=== PATIENT | female | born 2000 | race Caucasian/White ===

== ENCOUNTER 2021-02-24 14:24 | Emergency (ER) | payer MEDICAID, SELFPAY ==
[2021-02-24 14:28] VITALS: BP 119/52; PULSE 70; RESP 16; TEMP 36.2; O2SAT 99
--- NOTE | 2021-02-24 14:45 | ED.GENADUL_ITS ---
Discharge Plan Disposition Patient Disposition: HOME Condition: Stable Discharge Details Clinical Impression: Tick bite Primary Care Provider: Raad Bhakta ED Provider: Daniel Sue Home Meds and New Rx's Prescriptions: Continued topiramate 25 mg tablet 25 mg PO DAILY RF: 0 loratadine [Claritin] 10 mg Tablet 10 mg PO PRNRF: 0 Nurtec ODT 75 mg tablet,disintegrating 75 mg PO PRNRF: 0 Discharge Instructions Instructions: Tick Bite (ED) Additional Instructions: A single dose of doxycycline was given to prevent potential transmission of Lyme disease. Keep the area clean and dry, you may apply an antibiotic ointment locally. Watch for new or worsening symptoms and return to the ER for any concerns. Medical Decision Making 20-year-old female presents for a right leg tick bite, tick has been there since at least Saturday night, partially engorged. They burned the tick , I am unable to accurately identify what type of tick it is. Will provide a single 200 mg dose of doxycycline. Patient and family have no additional questions or concerns. I was able to scrape away the potential foreign body, Band-Aid placed. Standard discharge and return precautions given Medical Records Medical records reviewed: Yes I reviewed the patient's medical records. HPI General Mode of arrival: ambulatory . Date/Time Provider Initiated Documentation: 02/24/21 14:33 . Limitations to Documentation: no limitations . Information obtained by: patient . HPI Narrative: This is a 20-year-old female, denies significant past medical history, presenting for a tick bite on her right lower extremity. Patient states that the tick has been there since sometime after Saturday. She noticed the tick this morning around 11:30 AM, it was partially engorged, and she was able to remove the tick without difficulty. They then burned the tick but did not bring it in a plastic bag. Denies fever, joint pain, rash. She has no additional questions or concerns at this time. Related Data Home Medications Medication Instructions Recorded Confirmed Nurtec ODT 75 mg PO PRN 02/24/21 loratadine [Claritin] 10 mg PO PRN 02/24/21 topiramate 25 mg PO DAILY 02/24/21 02/24/21 Allergies Allergy/AdvReac Type Severity Reaction Status Date / Time latex Allergy Mild Skin Rash Unverified 02/24/21 14:33 General Stated Complaint: RashLesion KEITH: 4 Review of Systems Constitutional Constitutional: Denies fever(s) Musculoskeletal Musculoskeletal: Denies arthralgias Integumentary/Breasts Skin/Breast: Denies erythema PFSH Social History Smoking/Tobacco Use Status: Never Smoking risk assessment performed?: Yes Alcohol Intake: never Drug use: Never Substance use type: does not use Do you feel safe in your relationship?: Yes Exam Const General: cooperative, healthy appearing, comfortable and no acute distress Orientation: alert and awake HENMT Head: normal to inspection, normocephalic and atraumatic Eyes Conjunctivae: conjunctivae normal Neck Neck: normal visual inspection, trachea midline and supple Resp Effort & Inspection: normal respiratory effort and able to speak in complete sentences Skin General skin exam: no rashes or lesions noted Neuro General: patient alert, patient awake, moves all extremities and no focal motor deficits Cognition: normal cognition Speech: speech normal Gait: normal gait Motor: muscle tone normal throughout Sensory Exam: no sensory deficits noted Extrem General: full ROM and capillary refill normal Knee images: 1. 0.5 cm macular erythema, centrally there is an area of hyperpigmentation, difficult to tell whether this is scalpel potential foreign body. There is no tenderness, warmth, drainage. No signs of secondary infection. Psych Appearance: grossly normal Mental Status: mental status grossly normal Course Vital Signs Vital signs: Vital Signs Temperature 36.2 C L 02/24/21 14:28 Pulse 70 02/24/21 14:28 Respiratory Rate 16 02/24/21 14:28 Blood Pressure 119/52 L 02/24/21 14:28 Pulse Oximetry 99 02/24/21 14:28 Temperature 36.2 C L 02/24/21 14:28 Temperature Source Skin 02/24/21 14:28 Pulse 70 02/24/21 14:28 Respiratory Rate 16 02/24/21 14:28 Respiratory Effort Non-Labored 02/24/21 14:28 Blood Pressure 119/52 L 02/24/21 14:28 Blood Pressure Position Sitting 02/24/21 14:28 Pulse Oximetry 99 02/24/21 14:28 Oxygen Delivery Method Room Air 02/24/21 14:28 Oxygen Flow Rate 0 02/24/21 14:28 Pain Level 2 02/24/21 14:28 Procedures Other Description: Using an 11 blade scalpel, I was able to gently scrape across skin and remove the area of mild hyperpigmentation. I was able to see to the base of the lesion, no foreign body remained
[2021-02-24] MEDS: Doxycycline Hyclate 100 MG CAP 200 MG PO (14:59)
== END 2021-02-24 15:03 | disposition home or self-care (01) ==
PROVIDERS: Emergency Provider Physician Assistant; PCP Family Medicine
DX: S80.261A Insect bite (nonvenomous), right knee, initial encounter (principal); W57.XXXA Bitten or stung by nonvenomous insect and other nonvenomous arthropods, initial encounter
CPT/HCPCS: 99283

== ENCOUNTER 2021-03-15 09:10 | Outpatient (CLI) | payer MEDICAID, SELFPAY ==
[2021-03-16 10:21] LABS: Lyme Ab w Rflx to Lyme Confirm Negative (Negative)
== END 2021-03-15 09:11 | disposition home or self-care (01) ==
PROVIDERS: PCP Family Medicine; Visit Provider Family Medicine
DX: S80.869S Insect bite (nonvenomous), unspecified lower leg, sequela (principal); W57.XXXS Bitten or stung by nonvenomous insect and other nonvenomous arthropods, sequela
CPT/HCPCS: 36415; 86618

== ENCOUNTER 2021-04-25 11:34 | Emergency (ER) | payer MEDICAID, SELFPAY ==
[2021-04-25 11:45] VITALS: BP 134/87; PULSE 64; RESP 14; TEMP 36.6; O2SAT 97
--- NOTE | 2021-04-25 12:00 | DI.RAD_ITS ---
Exam(s) XR LUMBAR SPINE COMPLETE EXAM: XR LUMBAR SPINE COMPLETE CLINICAL HISTORY: R back pain. TECHNIQUE: 2D digital imaging was performed. COMPARISON: No exams were available for comparison FINDINGS: BONES: No fracture or destructive lesion. Vertebral bodies are unremarkable. No facet hypertrophy luz ntified. DISKS: Intervertebral disc spaces are maintained. ALIGNMENT: Lumbar spinal alignment is within normal limits. SOFT TISSUE: Normal. IMPRESSION: Unremarkable radiographs of the lumbar spine. DATA REPOSITORY: RADIATION DOSE DELIVERED:
--- NOTE | 2021-04-25 12:00 | DI.RAD_ITS ---
Exam(s) XR THORACIC SPINE COMPLETE EXAM: XR THORACIC SPINE COMPLETE CLINICAL HISTORY: pain, most R thoracic. TECHNIQUE: 2D digital imaging was performed. COMPARISON: No exams were available for comparison FINDINGS: BONES: There is no fracture or destructive lesion. The vertebral bodies and posterior elements are un remarkable. DISKS:Alignment is within normal limits. Interverebral disc spaces are maintained. SOFT TISSUE: Visualized lungs are clear. IMPRESSION: Unremarkable radiographs of the thoracic spine. DATA REPOSITORY: RADIATION DOSE DELIVERED:
--- NOTE | 2021-04-25 12:00 | DI.RAD_ITS ---
Exam(s) XR CHEST 2V PA LATERAL EXAM: XR CHEST 2V PA LATERAL CLINICAL HISTORY: pain R thoracic posterior TECHNIQUE: 2D digital imaging was performed. COMPARISON: No exams were available for comparison FINDINGS: MEDIASTINUM: Normal. HEART: Normal. PULMONARY VASCULATURE: Normal. LUNGS: Clear. PLEURAL SPACE: No pleural effusion or pneumothorax. BONE:Unremarkable for age. IMPRESSION: No acute abnormality. DATA REPOSITORY: RADIATION DOSE DELIVERED:
[2021-04-25] MEDS: diazePAM 5 MG TAB PO (12:15)
--- NOTE | 2021-04-25 12:16 | W.ED.GENAD ---
Discharge Plan Disposition Patient Disposition: HOME Condition: Stable Discharge Details Clinical Impression: Rhomboid myalgia Primary Care Provider: Raad Bhakta ED Provider: Raad Richards Home Meds and New Rx's Prescriptions: New methocarbamol 500 mg tablet 500 mg PO Q6H PRN (Reason: Back pain or spasm) 7 Days Qty: 20 RF: 0 Continued loratadine [Claritin] 10 mg Tablet 10 mg PO PRNRF: 0 Discharge Instructions Instructions: Musculoskeletal Pain (ED) Additional Instructions: Small, frequent sips of fluids with you maintain good hydration. Consider adding an [id number] electrolyte supplements such as Nuun tablets. May use methocarbamol as prescribed, as needed for pain or spasm. May apply gentle foam roll pressure to area to reduce discomfort. Continue Tylenol and/or ibuprofen as needed for pain. Return if develop a rash, increasing pain, or any other acute concerns. No alcohol or driving the next 6 hours time as you were given Valium. Stand Alone Forms: Work Release Medical Decision Making 20-year-old female presents with onset of back pain over the weekend that she describes as constant, throbbing, primarily with located right thoracic. Seem to have occasional worsening but did respond to both cold, heat, NSAIDs. No fall or injury. Patient has reproducible discomfort in the right rhomboid region on exam. She is referred for screening x-rays of the spine and chest, as well as screening urinalysis. Of x-ray unremarkable for acute process. Urinalysis unremarkable. Patient improving following oral Valium. Most consistent with muscular spasm. We will trial methocarbamol and conservative management at home. She is stable and appropriate for discharge at this time. HPI General Mode of arrival: ambulatory. Date/Time Provider Initiated Documentation: 04/25/21 11:44. Limitations to Documentation: no limitations. Information obtained by: patient. History of Present Illness 20 year old F presents to the emergency department with the chief complaint of Back pain, described as moderate, Quality is described as dull and constant, and is localized to the back. Patient reports radiation to back. Patient started experiencing this hour(s) and it has been constant. Rest improves symptom(s), Movement worsens symptoms . Patient notes denies fever/chills, nausea/vomiting and rash. Patient did receive the following treatments prior to arrival, NSAID, cold therapy and heat therapy Related Data Home Medications Medication Instructions Recorded Confirmed loratadine [Claritin] 10 mg PO PRN 02/24/21 methocarbamol 500 mg PO Q6H PRN 7 Days #20 tab 04/25/21 Previous Rx's Medication Instructions Recorded methocarbamol 500 mg PO Q6H PRN 7 Days #20 tab 04/25/21 Allergies Allergy/AdvReac Type Severity Reaction Status Date / Time latex Allergy Mild Skin Rash Unverified 04/25/21 11:50 General Stated Complaint: Nk/Back Pain KEITH: 3 Review of Systems Narrative: No fall or injury. No fever, no change to urination. Denies rash. 6 systems reviewed and otherwise negative. [facility] Social History Smoking/Tobacco Use Status: Never Smoking risk assessment performed?: Yes Alcohol Intake: never Drug use: Never Substance use type: does not use Do you feel safe at home: Yes Do you feel safe in your relationship?: Yes Exam Narrative Exam Narrative: GEN: awake, alert, oriented 3. Pleasant, well groomed, interactive. HEAD: Normocephalic, atraumatic ENT: Mucous membranes moist, oropharynx unremarkable, External ear exam unremarkable EYES: PERRL, EOMI NECK: Full ROM, no TONY, no menigismus CHEST/RESP: Nontender, clear to auscultation bilateral, no wheeze/rhonchi/rales CARDIOVASCULAR: RRR, no murmur, rub michelle. 2+ Rad pulse bilateral Back: Right medial scapular/rhomboid tenderness and spasm present. Minimal right lumbar spasm present. No midline step-off or deformity. ABDOMEN: Soft, nontender, no mass. +Bowel sounds EXT: Full ROM, no edema, no rash Neuro: Grossly normal neurologic exam, conversant, interactive. Psych: Speech fluent, thoughts congruent, affect normal Course Vital Signs Vital signs: Vital Signs Temperature 36.6 C 04/25/21 11:45 Pulse 64 04/25/21 11:45 Respiratory Rate 14 04/25/21 11:45 Blood Pressure 134/87 04/25/21 11:45 Pulse Oximetry 97 04/25/21 11:45 Temperature 36.6 C 04/25/21 11:45 Temperature Source Skin 04/25/21 11:45 Pulse 64 04/25/21 11:45 Respiratory Rate 14 04/25/21 11:45 Respiratory Effort Non-Labored 04/25/21 11:52 Blood Pressure 134/87 04/25/21 11:45 Blood Pressure Position Supine 04/25/21 11:45 Pulse Oximetry 97 04/25/21 11:45 Oxygen Delivery Method Room Air 04/25/21 11:45 Oxygen Flow Rate 0 04/25/21 11:45 Pain Level 8 04/25/21 11:45
[2021-04-25 12:31] LABS: Bilirubin Negative (Negative); Blood Negative (Negative); Clarity Clear (Clear); Glucose Negative (Negative); Ketones Negative (Negative); Leukocyte Esterase Negative (Negative); Nitrite Negative (Negative); Specific Gravity 1.015 (1.005-1.025); Urobilinogen 0.2 EU/dL (Up TO 0.2)
== END 2021-04-25 13:10 | disposition home or self-care (01) ==
PROVIDERS: Emergency Provider Emergency Medicine; PCP Family Medicine
DX: M79.18 Myalgia, other site (principal); M54.6 Pain in thoracic spine
CPT/HCPCS: 81025; 99284; 71046; 72072; 72110; 81003

== ENCOUNTER 2021-08-24 04:21 | Outpatient (CLI) | payer MEDICAID, SELFPAY ==
[2021-08-24 22:24] LABS: FSH 7.6 mIU/mL (See Note)
[2021-08-24 22:27] LABS: Prolactin 8.1 ng/mL (See Table)
[2021-08-25 09:33] LABS: DHEA Sulfate 375 ug/dL (134-407)
[2021-08-28 00:19] LABS: Testosterone, Total 24 ng/dL (8-60)
== END 2021-08-24 04:22 | disposition home or self-care (01) ==
LOC: LBO 04:21
PROVIDERS: PCP Family Medicine; Visit Provider Nurse Practitioner Women's Health
DX: N92.6 Irregular menstruation, unspecified (principal); R63.4 Abnormal weight loss
CPT/HCPCS: 36415; 82627; 84403; 83001; 84146; 84443

== ENCOUNTER 2022-02-02 21:03 | Emergency (ER) | payer MEDICAID, SELFPAY ==
[2022-02-02 21:14] VITALS: BP 134/81; PULSE 79; RESP 19; TEMP 37.2; O2SAT 95
--- NOTE | 2022-02-02 21:15 | DI.RAD_ITS ---
Exam(s) XR FOOT LT COMPLETE EXAM: XR FOOT LT COMPLETE CLINICAL HISTORY: stepped on a nail, r/o foreign body. TECHNIQUE: 2D digital imaging was performed. Three views. COMPARISON: CR XR THORACIC SPINE COMPLETE from 04/25/2021 FINDINGS: BONES: No acute fracture is present. No bony destructive lesion is seen. JOINTS: No dislocation present. SOFT TISSUE: Normal. No foreign body or abnormal gas collection. IMPRESSION: Unremarkable radiographs of the left foot. DATA REPOSITORY: RADIATION DOSE DELIVERED:
--- NOTE | 2022-02-02 21:49 | ED.GENADUL_ITS ---
Discharge Plan Disposition Patient Disposition: HOME Condition: Stable Discharge Details Clinical Impression: Puncture wound of foot, left Primary Care Provider: Chance Hernandez ED Provider: Lily Funk Home Meds and New Rx's Prescriptions: New ciprofloxacin HCl 500 mg tablet 500 mg PO BID 7 Days Qty: 14 0RF Continued loratadine [Claritin] 10 mg Tablet 10 mg PO PRN Discharge Instructions Instructions: Puncture Wound (ED) Additional Instructions: Keep wound clean and dry. Cover wound with bandage if risk of contamination. Otherwise you can keep the wound open to air if resting at home to allow to dry and heal. A prescription for antibiotics was sent electronically to your pharmacy to take as directed until finished. Follow-up with your primary care doctor in 1 week. Return to the emergency department with any worsening or new concerning symptoms such as fever such as fever, increased pain, redness or swelling. Discharge Data Discharge Date/Time-TO BE ENTERED AT DEPARTURE: 02/02/22 22:53 Discharge Physician: Lily Funk Medical Decision Making 21-year-old female presents with a complaint of puncture wound through her shoe to her left foot after stepped on a benita nail in a board. Tetanus up-to-date. There is a 2 mm puncture wound noted to the plantar surface of her left foot overlying the distal MTP joint. Bleeding is controlled. There is some mild surrounding swelling but no evidence of cellulitis. Patient referred for x-ray which was unremarkable. Urine negative. Her foot was irrigated and soaked in saline and Betadine. For coverage for puncture wound, will treat with Cipro. She was given 1 dose here and a prescription sent electronically to her pharmacy. Advised to follow up with the primary care doctor for re-evaluation. Usual and customary return precautions given prior to discharge. Medical Records Medical records reviewed: Yes I reviewed the patient's medical records. Imaging Data Radiologic Study: Radiologist's impression: XR Left Foot Exam date and time: 02/02/2022 9:40 PM Age: 21 years old Clinical indication: Foot; Left; Patient HX: Stepped on nail, pain and swelling, R/O fb TECHNIQUE: Imaging protocol: Radiologic exam of the Left foot. Views: 3 or more views. COMPARISON: No relevant prior studies available. FINDINGS: Bones/joints: No fractures. Normal alignment is maintained in the midfoot, hindfoot, and forefoot. Joint spaces are well-maintained. No blastic or lytic lesions. No gross ankle joint effusion. No hindfoot coalition. Soft tissues: No periostitis or osteolysis. No gross soft tissue abnormalities. No radiopaque foreign bodies. IMPRESSION: No acute findings. No radiopaque foreign bodies are identified. HPI General Mode of arrival: ambulatory . Date/Time Provider Initiated Documentation: 02/02/22 21:23 . Limitations to Documentation: no limitations . Information obtained by: patient . HPI Narrative: Patient is a 21-year-old female who presents to the ED with a complaint of puncture wound to her left foot while wearing rubber croc shoes this afternoon. Patient states she stepped on a plank while wearing the shoes and a large nail became stuck to the shoe into the plantar surface of her foot. She states she was able to remove the nail and it was intact. She states her tetanus is up-to-date 2017. She states she immediately soaked and irrigated her foot. She is presenting now with pain and swelling to the area. Related Data Home Medications Medication Instructions Recorded Confirmed loratadine 10 mg tablet (Claritin) 10 mg PO PRN 02/24/21 11/21/21 ciprofloxacin HCl 500 mg tablet 500 mg PO BID 7 days #14 tabs 02/02/22 Previous Rx's Medication Instructions Recorded ciprofloxacin HCl 500 mg tablet 500 mg PO BID 7 days #14 tabs 02/02/22 Allergies Allergy/AdvReac Type Severity Reaction Status Date / Time latex Allergy Mild Skin Rash Unverified 08/21/21 13:56 General Stated Complaint: Trauma KEITH: 4 Review of Systems All systems reviewed & are unremarkable except as noted in HPI and below Constitutional Constitutional: Reports as per HPI, Denies chills and Denies fever(s) Eyes Eyes: Denies blurry vision ENT Ears, Nose, Mouth, and Throat: Denies dizziness, Denies sore throat and Denies throat swelling Cardiovascular Cardiovascular: Denies chest pain and Denies dyspnea Respiratory Respiratory: Denies cough and Denies dyspnea Gastrointestinal Gastrointestinal: Denies abdominal pain, Denies diarrhea and Denies vomiting Genitourinary Genitourinary: Denies hematuria and Denies dysuria Musculoskeletal Musculoskeletal: Denies back pain and Denies numbness Integumentary/Breasts Skin/Breast: Denies lesions and Denies rash Neurologic Neurologic: Denies dizziness, Denies localized weakness and Denies numbness Allergic/Immunologic Allergic/Immunologic: Denies throat swelling PFSH All Active Problems (Updated 02/02/22 @ 22:27 by Lily Funk DO) Puncture wound of foot, left (Acute) Anxiety (Chronic) Migraine headache with aura (Acute) PCOS (polycystic ovarian syndrome) (Acute) Medical History (Updated 02/02/22 @ 22:27 by Lily Funk DO) Anemia Surgical History (Updated 08/21/21 @ 14:47 by Neha Garcia NP) S/P MCL repair S/P ureteral reimplantation Social History Smoking/Tobacco Use Status: Never Smoking risk assessment performed?: Yes Alcohol Intake: never Drug use: Never Substance use type: does not use Do you feel safe at home: Yes Do you feel safe in your relationship?: Yes History History 0 Para Hx # Term Pregnancies Multiple births Hx # Pregnancies Ectopic pregnancies AB induced Hx Number of Living Children AB spontaneous Exam Const General: cooperative, healthy appearing and no acute distress Orientation: alert, awake and oriented x3 HENMT Head: normal to inspection Mouth: oral mucosae normal Eyes General: appearance normal, both eyes and all related structures Neck Neck: normal visual inspection Resp Effort & Inspection: normal respiratory effort and able to speak in complete sentences Cardio Rate: regular rate Skin General skin exam: no rashes or lesions noted Neuro General: patient alert, patient awake and patient oriented x3 Motor: muscle tone normal throughout Extrem Ankle/foot/toe images: 1. 2 mm puncture wound noted on the plantar surface of the left foot overlying the distal first MTP joint. There is a tiny hematoma noted but no active bleeding, drainage, erythema or abscess noted. Psych Appearance: grossly normal Affect: normal affect Course Vital Signs Vital signs: Vital Signs Temperature 99.0 F 02/02/22 21:14 Pulse 79 02/02/22 21:14 Respiratory Rate 19 02/02/22 21:14 Blood Pressure 134/81 02/02/22 21:14 Pulse Oximetry 95 02/02/22 21:14 Temperature 99.0 F 02/02/22 21:14 Temperature Source Temporal Artery Scan 02/02/22 21:14 Pulse 79 02/02/22 21:14 Respiratory Rate 19 02/02/22 21:14 Blood Pressure 134/81 06/17/22 21:14 Blood Pressure Position Sitting 02/02/22 21:14 Pulse Oximetry 95 02/02/22 21:14 Oxygen Delivery Method Room Air 02/02/22 21:14 Oxygen Flow Rate 0 02/02/22 21:14 Pain Level 3 02/02/22 21:14
--- NOTE | 2022-02-02 22:19 | DI.VRAD_ITS ---
PROCEDURE INFORMATION: Exam: XR Left Foot Exam date and time: 02/02/2022 9:40 PM Age: 21 years old Clinical indication: Foot; Left; Patient HX: Stepped on nail, pain and swelling, R/O fb TECHNIQUE: Imaging protocol: Radiologic exam of the Left foot. Views: 3 or more views. COMPARISON: No relevant prior studies available. FINDINGS: Bones/joints: No fractures. Normal alignment is maintained in the midfoot, hindfoot, and forefoot. Joint spaces are well-maintained. No blastic or lytic lesions. No gross ankle joint effusion. No hindfoot coalition. Soft tissues: No periostitis or osteolysis. No gross soft tissue abnormalities. No radiopaque foreign bodies. IMPRESSION: No acute findings. No radiopaque foreign bodies are identified. Dictated and Authenticated by: Chance Saha MD. Ordering:TONE Bautista MD
[2022-02-02] MEDS: Ciprofloxacin 500 MG TAB PO (22:44)
[2022-02-02 22:53] VITALS: BP 118/64; PULSE 68; RESP 17; TEMP 36.8; O2SAT 98
== END 2022-02-02 22:53 | disposition home or self-care (01) ==
PROVIDERS: Emergency Provider Physician Assistant; PCP Family Medicine
DX: S91.332A Puncture wound without foreign body, left foot, initial encounter (principal); W45.0XXA Nail entering through skin, initial encounter
CPT/HCPCS: 81025; 99283; 73630

== ENCOUNTER 2022-02-28 23:58 | Emergency (ER) | payer MEDICAID, SELFPAY ==
[2022-03-01 00:03] VITALS: BP 159/85; PULSE 122; RESP 20; TEMP 37.1; O2SAT 100
[2022-03-01 00:04] VITALS: BP 159/85; PULSE 116; O2SAT 100
--- NOTE | 2022-03-01 00:27 | ED.GENADUL_ITS ---
Discharge Plan Disposition Patient Disposition: HOME Condition: Improving Discharge Details Clinical Impression: Accidental marijuana overdose Primary Care Provider: Chance Hernandez ED Provider: Raad Richards Home Meds and New Rx's Prescriptions: Continued buspirone 5 mg tablet 5 mg PO BID Label Comments: TAKE ONE TABLET BY MOUTH TWICE A DAY loratadine [Claritin] 10 mg Tablet 10 mg PO PRN Discharge Instructions Additional Instructions: Home to rest tonight. Please ensure there is no additional edible marijuana available in the home. Your urine did show positive marijuana/THC but was otherwise unremarkable. Medical Decision Making 21yof presents with mother after accidentally eating a sugar cookie that was made with marijuana at their home. It was not store-bought. There is a question of whether the patient may also have been exposed to angels trumpet. The patient ingested approximately 4 and half hours prior to evaluation, she had been seeing bright-colored lights on the lines of the road. She now feels as if she is coming down. She is able to tell me her medications, medical history, and carry on a conversation. She is mildly tachycardic but able to orally hydrate. I discussed the case with the on-call poison center. No indication for any management other than observation and conservative management. Patient observed and improved. Able to orally hydrate. Labs note THC in the urine, otherwise unremarkable. Most consistent with edible marijuana mild toxicity. Patient stable for discharge to home. HPI General Mode of arrival: ambulatory . Date/Time Provider Initiated Documentation: 03/01/22 00:03 . Limitations to Documentation: no limitations . Information obtained by: patient and family . History of Present Illness 21 year old F presents to the emergency department with the chief complaint of Hallucinating after eating marijuana edible, described as moderate, and is localized to the head. Patient started experiencing this hour(s) and it has been intermittent. No relieving factors improve symptom(s), No exacerbating factors reported . Patient notes denies fever/chills, headaches and seizure. Patient did receive the following treatments prior to arrival, none Related Data Home Medications Medication Instructions Recorded Confirmed loratadine 10 mg tablet (Claritin) 10 mg PO PRN 02/24/21 11/21/21 buspirone 5 mg tablet 5 mg PO BID 03/01/22 03/01/22 Allergies Allergy/AdvReac Type Severity Reaction Status Date / Time latex Allergy Mild Skin Rash Unverified 03/01/22 00:05 General Stated Complaint: OD/Poison KEITH: 3 Review of Systems Narrative: no vomiting, fall or other injury PFSH All Active Problems (Updated 03/01/22 @ 01:34 by Raad Richards MD) Puncture wound of foot, left (Acute) Accidental marijuana overdose (Acute) Anxiety (Chronic) Migraine headache with aura (Acute) PCOS (polycystic ovarian syndrome) (Acute) Medical History Anemia Surgical History S/P MCL repair S/P ureteral reimplantation Social History Smoking/Tobacco Use Status: Never Smoking risk assessment performed?: Yes Alcohol Intake: never Drug use: Never Substance use type: does not use Do you feel safe at home: Yes Do you feel safe in your relationship?: Yes History History 0 Para Hx # Term Pregnancies Multiple births Hx # Pregnancies Ectopic pregnancies AB induced Hx Number of Living Children AB spontaneous Exam Narrative Exam Narrative: GEN: awake, alert, oriented 3. Pleasant, well groomed, interactive. HEAD: Normocephalic, atraumatic ENT: Mucous membranes moist, oropharynx unremarkable, External ear exam unremarkable EYES: PERRL, EOMI NECK: Full ROM, no TONY, no menigismus CHEST/RESP: Nontender, clear to auscultation bilateral, no wheeze/rhonchi/rales CARDIOVASCULAR: Regular and tachycardic, no murmur, rub michelle. 2+ Rad pulse bilateral ABDOMEN: Soft, nontender, no mass. +Bowel sounds EXT: Full ROM, no edema, no rash Neuro: Grossly normal neurologic exam, conversant, interactive. Psych: Speech fluent, thoughts congruent, affect normal Course Vital Signs Vital signs: Vital Signs Temperature 37.1 C 03/01/22 00:03 Pulse 122 H 03/01/22 00:03 Respiratory Rate 20 03/01/22 00:03 Blood Pressure 159/85 H 03/01/22 00:03 Pulse Oximetry 100 03/01/22 00:03 Temperature 37.1 C 03/01/22 00:03 Temperature Source Skin 03/01/22 00:03 Pulse 122 H 03/01/22 00:03 Respiratory Rate 20 03/01/22 00:03 Respiratory Effort Non-Labored 03/01/22 00:16 Respiratory Depth Normal 03/01/22 00:16 Respiratory Pattern Normal 03/01/22 00:16 Blood Pressure 159/85 H 03/01/22 00:03 Blood Pressure Position Sitting 03/01/22 00:03 Pulse Oximetry 100 03/01/22 00:03 Oxygen Delivery Method Room Air 03/01/22 00:03 Oxygen Flow Rate 0 03/01/22 00:03 Lab/Test Results Lab/Test Results: POC- Test(urine) Negative
[2022-03-01 00:47] LABS: Bilirubin Negative (Negative); Blood Trace-intact (Negative); Clarity Clear (Clear); Glucose Negative (Negative); Ketones Negative (Negative); Leukocyte Esterase Negative (Negative); Nitrite Negative (Negative); Specific Gravity <= 1.005 (1.005-1.025); Urobilinogen 0.2 EU/dL (Up TO 0.2); pH 5.5 (5-8)
[2022-03-01 01:05] LABS: *AMPHETAMINES SCREEN URINE Negative (Negative); *BARBITURATES SCREEN URINE Negative (Negative); *BENZODIAZEPINES SCREEN URINE Negative (Negative); Bacteria Negative HPF (Negative); C & S Indicated? No; Cannabinoids THC Positive (Negative); Cocaine Screen,Urine Negative (Negative); Crystals Negative HPF (Negative); Epithelial Cells Negative HPF (Negative); METHADONE URINE SCREEN Negative (Negative); Mucus Negative (Negative); OPIATES URINE SCREEN Negative (Negative); RBC Negative HPF (0-2); WBC Negative HPF (0-5)
[2022-03-01 01:07] LABS: Tricyclic Antidepressants Negative (Negative)
== END 2022-03-01 02:03 | disposition home or self-care (01) ==
PROVIDERS: Emergency Provider Emergency Medicine; PCP Family Medicine
DX: T40.711A Poisoning by cannabis, accidental (unintentional), initial encounter (principal); R44.3 Hallucinations, unspecified; R00.0 Tachycardia, unspecified; Z32.02 Encounter for pregnancy test, result negative
CPT/HCPCS: 80307; 81025; 99282; 81003; 81015; 99284

== ENCOUNTER 2023-01-18 00:44 | Outpatient (CLI) | payer MEDICAID, SELFPAY ==
--- NOTE | 2023-01-18 | DI.MRI_ITS ---
Exam(s) MR LOWER JOINT LT WO EXAM: MR LOWER JOINT LT WO CLINICAL HISTORY: LEFT KNEE PAIN M25.562 EFFUSION, SEVERE LIMITATION OF ROM. TECHNIQUE: Multiplanar multisequence MRI was performed. COMPARISON: No exams were available for comparison FINDINGS: BONES: High signal in the marrow of the medial patellar facet. Marrow edema in the lateral aspect of the lateral femoral condyle. JOINTS: A moderate-sized joint effusion is present. Articular cartilage: Patellofemoral joint: Articular cartilage is unremarkable. Medial femoral tibial joint: Articular cartilage is unremarkable. Lateral femoral tibial joint: Articular cartilage is unremarkable. TENDONS: Extensor mechanism: Unremarkable. Medial retinaculum: Thickened with surrounding edema. Lateral retinaculum: Unremarkable. Popliteus: Unremarkable. MUSCLES: Unremarkable. MENISCI: The medial meniscus is unremarkable. The lateral meniscus is unremarkable. SOFT TISSUES: Edema in the subcutaneous fat. LIGAMENTS: Anterior Cruciate: Unremarkable. Posterior Cruciate: Unremarkable. Medial Collateral:Unremarkable. Lateral Collateral: Unremarkable. OTHER: IMPRESSION: Contusions the medial aspect of the patella and lateral femoral condyle. Tear of the medial patellar retinaculum. No cartilage defect. DATA REPOSITORY:
== END 2023-01-18 01:04 ==
LOC: DI 00:44
PROVIDERS: PCP Family Medicine; Visit Provider Family Medicine
DX: S80.01XA Contusion of right knee, initial encounter (principal); S86.812A Strain of other muscle(s) and tendon(s) at lower leg level, left leg, initial encounter; M25.462 Effusion, left knee; X58.XXXA Exposure to other specified factors, initial encounter
CPT/HCPCS: 73721

== ENCOUNTER 2024-08-28 00:52 | Outpatient (CLI) | payer MEDICAID, SELFPAY ==
[2024-08-28 15:46] LABS: Panorama Kit Sent via Fed Ex
[2024-08-28 15:54] LABS: Abs Immature Grans 0.03 10^3/uL (0.0-0.06); Absolute Basophil Count 0.05 10^3/uL (0.0-0.2); Absolute Eosinophil Count 0.06 10^3/uL (0.0-0.7); Absolute Lymphocyte Count 2.39 10^3/uL (1.2-3.4); Basophils % 0.4 %; Eosinophils % 0.5 %; HCT 38.2 % (36.0-46.0); HGB 12.6 g/dL (11.2-15.7); Immature Grans % 0.2 %; Lymphocytes % 19.4 %; MCH 28.5 pg (27.0-33.0); MCV 86 fL (80-95); MPV 9.4 fL (8.0-11.0); Monocytes % 5.3 %; Neutrophils % 74.2 %; Platelet Count 290 10^3/uL (130-400); RBC 4.42 10^6/uL (3.93-5.22); RDW 12.8 % (11.7-14.6); RDW-SD 40.4 fL; WBC 12.34 10^3/uL (4.4-10.8)
[2024-08-28 15:56] LABS: Absolute Monocyte Count 0.65 10^3/uL (0.1-0.8); Absolute Neutrophil Count 9.16 10^3/uL (1.2-6.7)
[2024-08-29 08:45] LABS: HIV-1/2 Ag & Ab Screen Negative (Negative)
[2024-08-31 10:21] LABS: Hepatitis B Surface Ag Negative (Negative)
[2024-08-31 10:33] LABS: Hepatitis C Ab w Rflx HCV PCR Negative (Negative)
[2024-08-31 11:21] LABS: Rubella IgG Ab (UVM) Positive (See Note)
[2024-08-31 11:24] LABS: Varicella IgG Antibody Positive (See Note)
[2024-08-31 14:59] LABS: Syphilis IgG w/Reflex Nonreactive (Nonreactive)
[2024-09-11 11:53] LABS: Result Summary NEGATIVE; Specimen WB Whole Blood
== END 2024-08-28 00:53 | disposition home or self-care (01) ==
LOC: LBO 00:52
PROVIDERS: Advanced Practice Midwife; PCP Student in an Organized Health Care Education/Training Program; Visit Provider Advanced Practice Midwife
DX: Z34.91 Encounter for supervision of normal pregnancy, unspecified, first trimester (principal); E84.9 Cystic fibrosis, unspecified
CPT/HCPCS: 36415; 81220; 81222; 86787; 86803; 86850; 86900; 86901; 87340; 87389; 85025; 86762; 86780

== ENCOUNTER 2024-08-28 13:48 | Outpatient (REF) | payer MEDICAID, SELFPAY ==
[2024-08-28 14:13] LABS: Bilirubin Negative (Negative); Blood Negative (Negative); Clarity Sl Cloudy (Clear); Glucose Negative (Negative); Ketones 40 mg/dL (Negative); Leukocyte Esterase Trace (Negative); Nitrite Negative (Negative); Specific Gravity >= 1.030 (1.005-1.025); Urobilinogen 0.2 mg/dL (Up to 0.2); pH 5.5 (5-8)
[2024-08-28 14:19] LABS: Epithelial Cells Many HPF (Negative); RBC Negative HPF (0-2)
[2024-08-28 14:20] LABS: Bacteria Few HPF (Negative); C & S Indicated? No/Sq. Contamination; Casts Negative LPF (Negative); Crystals Negative HPF (Negative); Mucus Negative (Negative)
--- NOTE | 2024-08-28 15:00 | PAPFT_PTH ---
PATIENT: Hipolito Michel LOC: [facility] U#:[id number] AGE/SX: 24/F ROOM: RE08/28/[address]: Alcira Ruiz : 2000 BED: DIS: 08/28/2024 SPEC #: [id number] RECD: 08/28/24 17:20 STATUS: NILESH REQ #: [id number] SADIE: 08/28/24 15:[address]: Alcira Ruiz [facility]PT: [facility] Cytology RECD BY: Griselda Kirkpatrick ENTERED: 08/28/24 17:20 SP TYPE: PAPFT HAL DR: Vernon Kramer Tissues: 1 - CX/ENDOCX FOR PAP SMEARS Procedures: PAP THIN PREP/[facility] Screening Comments: [id number] (CHLAMYDIA/GC)
[2024-08-28 20:06] LABS: Lab Add On Test DONE
[2024-08-28 20:19] LABS: ALT 41 U/L (14-59); AST 18 U/L (15-37); Alkaline Phosphatase 66 U/L (46-116); Anion Gap 8.7 mmol/L (3-11); BUN 9 mg/dL (7-18); Bilirubin, Total 0.26 mg/dL (0.2-1.0); CO2 27.3 mmol/L (21.0-32.0); CREATININE 0.9 mg/dL (0.55-1.02); Calcium 9.3 mg/dL (8.5-10.1); Chloride 103 mmol/L (98-107); Estimated GFR 92.12 (mL/min/1.73m2); Glucose 101 mg/dL (74-106); Potassium 3.2 mmol/L (3.5-5.1); Sodium 139 mmol/L (136-145); Total Protein 7.3 g/dL (6.4-8.2)
[2024-08-28 20:43] LABS: Prot/Crea Ur Ratio 0.15
[2024-08-28 20:46] LABS: *AMPHETAMINES SCREEN URINE Negative (Negative); *BARBITURATES SCREEN URINE Negative (Negative); *BENZODIAZEPINES SCREEN URINE Negative (Negative); Cannabinoids THC Positive (Negative); Cocaine Screen,Urine Negative (Negative); METHADONE URINE SCREEN Negative (Negative); OPIATES URINE SCREEN Negative (Negative)
[2024-08-28 20:47] LABS: Tricyclic Antidepressants Negative (Negative)
[2024-08-31 12:32] LABS: Chlamydia Result Negative (Negative); GC Result Negative (Negative)
== END 2024-08-28 13:49 | disposition home or self-care (01) ==
LOC: LBN 13:48
PROVIDERS: PCP Student in an Organized Health Care Education/Training Program; Visit Provider Advanced Practice Midwife
DX: Z34.91 Encounter for supervision of normal pregnancy, unspecified, first trimester (principal); Z3A.12 12 weeks gestation of pregnancy
CPT/HCPCS: 80053; 80307; 87491; 87591; 88142; 81003; 81015; 82565; 84156; 87480; 87510; 87660

== ENCOUNTER 2024-10-01 03:11 | Outpatient (CLI) | payer MEDICAID, SELFPAY ==
[2024-10-05 14:22] LABS: AFP 33.2 ng/mL; Cigarette smoking status non-Smoker; GA used in risk estimate Dates estimate; IVF Pregnancy No; Initial or repeat testing Initial testing; Insulin dependent diabetes No; Maternal Weight 204 lbs; Number of Fetuses 1; Physician Phone Number 802-748-7300; Prev Pregnancy w/NTD No; RECOMMENDED FOLLOW UP None.; Results Summary Normal risk
== END 2024-10-01 03:12 | disposition home or self-care (01) ==
LOC: LBO 03:11
PROVIDERS: PCP Student in an Organized Health Care Education/Training Program; Visit Provider Advanced Practice Midwife
DX: Z34.91 Encounter for supervision of normal pregnancy, unspecified, first trimester (principal)
CPT/HCPCS: 36415; 82105

== ENCOUNTER 2024-12-17 03:48 | Outpatient (CLI) | payer MEDICAID, SELFPAY ==
[2024-12-17 14:38] LABS: HCT 34.1 % (36.0-46.0); HGB 11.1 g/dL (11.2-15.7); MCH 28.7 pg (27.0-33.0); MCHC 32.6 % (32.0-36.0); MCV 88 fL (80-95); MPV 9.2 fL (8.0-11.0); Platelet Count 326 10^3/uL (130-400); RBC 3.87 10^6/uL (3.93-5.22); RDW 12.5 % (11.7-14.6); RDW-SD 40.3 fL; WBC 10.25 10^3/uL (4.4-10.8)
[2024-12-17 14:50] LABS: Glucose,1 Hr (Glucola) 140 mg/dL (80-140)
== END 2024-12-17 03:49 | disposition home or self-care (01) ==
PROVIDERS: PCP Student in an Organized Health Care Education/Training Program; Visit Provider Advanced Practice Midwife
DX: Z34.92 Encounter for supervision of normal pregnancy, unspecified, second trimester (principal)
CPT/HCPCS: 36415; 82950; 85027

== ENCOUNTER 2024-12-17 21:00 | Outpatient (REF) | payer MEDICAID, SELFPAY ==
[2024-12-17 20:54] LABS: *AMPHETAMINES SCREEN URINE Negative (Negative); *BARBITURATES SCREEN URINE Negative (Negative); *BENZODIAZEPINES SCREEN URINE Negative (Negative); Cannabinoids THC Negative (Negative); Cocaine Screen,Urine Negative (Negative); METHADONE URINE SCREEN Negative (Negative); OPIATES URINE SCREEN Negative (Negative)
[2024-12-17 20:59] LABS: Tricyclic Antidepressants Negative (Negative)
[2024-12-21 10:06] LABS: Fentanyl Scr w/Rfx Confirm Negative ng/mL (<1)
[2024-12-24 10:15] LABS: Buprenorphine Negative ng/mL (Cutoff: 5.0); Norbuprenorphine Negative ng/mL (Cutoff: 2.5)
== END 2024-12-17 21:01 | disposition home or self-care (01) ==
LOC: LBN 21:00
PROVIDERS: PCP Student in an Organized Health Care Education/Training Program; Visit Provider Advanced Practice Midwife
DX: F12.90 Cannabis use, unspecified, uncomplicated (principal)
CPT/HCPCS: 80307; 80348

== ENCOUNTER 2024-12-31 01:38 | Outpatient (CLI) | payer MEDICAID, SELFPAY ==
[2024-12-31 10:10] LABS: Glucose 1 Hour 144 mg/dL
[2024-12-31 12:17] LABS: Glucose 3 Hour 129 mg/dL
== END 2024-12-31 01:39 | disposition home or self-care (01) ==
PROVIDERS: PCP Student in an Organized Health Care Education/Training Program; Visit Provider Advanced Practice Midwife
DX: Z34.93 Encounter for supervision of normal pregnancy, unspecified, third trimester (principal)
CPT/HCPCS: 36415; 82951

== ENCOUNTER 2025-01-14 02:38 | Outpatient (CLI) | payer MEDICAID, SELFPAY ==
--- NOTE | 2025-01-14 07:45 | DI.US_ITS ---
Exam(s) US OB DHRUV WEIGHT EXAM: US OB DHRUV WEIGHT CLINICAL HISTORY: marginal cord insertion, EFW, DHRUV,Z34.90. TECHNIQUE: Transabdominal obstetrical ultrasound was performed. COMPARISON: US US OB DETAILED MORPHOLOGY from 10/13/2024 FINDINGS: There is a single viable intrauterine gestation with cardiac activity identified-137 bpm The fetus is presently in cephalic position . Amniotic fluid: There is a normal amount of amniotic fluid with an DHRUV of 15.7cm. Placental location: The placenta is anterior grade 1,with no evidence of placenta previa. Dating parameters place this at approximately 32 weeks and 3 days gestational age, implying RONY of 03/08/2025. BPD measures 31 weeks and 0 days HC measures 33 weeks and 6 days AC measures 32 weeks and 6 days FL measures 31 weeks and 6 days Estimated weight is 1996 gm-4 pound 6 ounces Fetus is at the 57th percentile on the Hadlock scale. IMPRESSION:: Viable 3rd trimester gestation, as described above. DATA REPOSITORY:
== END 2025-01-14 02:58 ==
LOC: DI 02:38
PROVIDERS: PCP Student in an Organized Health Care Education/Training Program; Visit Provider Advanced Practice Midwife
DX: Z34.93 Encounter for supervision of normal pregnancy, unspecified, third trimester (principal); Z3A.33 33 weeks gestation of pregnancy
CPT/HCPCS: 76816

== ENCOUNTER 2025-01-28 01:10 | Outpatient (CLI) | payer MEDICAID, SELFPAY ==
--- NOTE | 2025-01-28 10:00 | DI.US_ITS ---
Exam(s) US OB F/U FACIAL/LVOT/RVOT EXAM: US OB F/U FACIAL/LVOT/RVOT CLINICAL HISTORY: renal and foot anatomy,fam h/o PKD,Z82.71, fam h/o clubfoot, Z82.69; Z34.90. TECHNIQUE: Transabdominal obstetrical ultrasound was performed. COMPARISON: US US OB DETAILED MORPHOLOGY from 10/13/2024 US US OB DHRUV WEIGHT from 01/14/2025 FINDINGS: There is a single viable intrauterine gestation with cardiac activity identified-134 bpm The fetus is presently in cephalic position . Amniotic fluid: There appears to be a normal amount of amniotic fluid is subjective assessment. Placental location: The placenta is anterior grade 2,with no evidence of placenta previa. Dating parameters not performed today. Requested anatomy: Kidneys: kidneys appear unremarkable on today's study. Both kidneys exhibit normal position and size and no evidence of hydronephrosis. Urinary bladder was full but not associated with significant dilatation of the renal pelves nor caliectasis. Lower extremities: Bilateral feet and tibias visualize. No evidence of obvious clubfoot deformity. IMPRESSION:: Viable intrauterine gestation as described above. Anterior grade 2 placenta. There are no abnormalities of the kidneys No evidence of obvious clubfoot deformity DATA REPOSITORY:
== END 2025-01-28 01:30 ==
LOC: DI 01:10
PROVIDERS: PCP Student in an Organized Health Care Education/Training Program; Visit Provider Advanced Practice Midwife
DX: Z82.69 Family history of other diseases of the musculoskeletal system and connective tissue (principal); Z34.93 Encounter for supervision of normal pregnancy, unspecified, third trimester; Z3A.34 34 weeks gestation of pregnancy
CPT/HCPCS: 76815

== ENCOUNTER 2025-02-11 14:33 | Outpatient (REF) | payer MEDICAID, SELFPAY ==
--- NOTE | 2025-02-18 16:46 | W.ANESCON ---
General Date of Service Date of Service: 02/18/25 Reason for Consult Requesting Provider: Alcira Ruiz How Consult Conducted:: Seen in Office Reason for Consult:: G1,P0 patient at 37 weeks. 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 Explained that hEDS have about a 25% higher rate of dural puncture during epidural placement and as well some hEDS patients are resistant to local anesthesia. Meds Allergies and Home Medications Allergies Allergy/AdvReac Type Severity Reaction Status Date / Time latex Allergy Mild Skin Rash Verified 02/18/25 15:08 Home Medication ?Medication ?Instructions ?Recorded vits 75-iron 28 mg-folic pkg PO 07/10/24 acid 800 mcg-omega3 440 mg oral pack (One Daily ) aspirin 81 mg tablet,delayed 81 mg PO DAILY 11/19/24 release ferrous sulfate 325 mg (65 mg 325 mg PO DAILY #30 tabs 02/11/25 iron) tablet PFSH Active Problems Active Problems: Problem Status Onset Code Anemia affecting first Acute O99.019 Family history of clubfoot Acute Z82.69 Vesico-ureteric reflux Acute N13.70 Bilateral hip pain 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, 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 Marijuana use Acute F12.90 BMI 36.0-36.9,adult Acute Z68.36 Acute Z34.90 Anxiety Chronic F41.9 Medical History Medical History (Updated 02/18/25 @ 07:58 by Alcira Ruiz CNM) Positive test PCOS (polycystic ovarian syndrome) Migraine headache with aura 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
== END 2025-02-11 14:34 | disposition home or self-care (01) ==
LOC: LBN 14:33
PROVIDERS: PCP Student in an Organized Health Care Education/Training Program; Visit Provider Advanced Practice Midwife
DX: Z34.93 Encounter for supervision of normal pregnancy, unspecified, third trimester (principal)
CPT/HCPCS: 87081

== ENCOUNTER 2025-02-18 15:50 | Outpatient (CLI) | payer MEDICAID, SELFPAY ==
[2025-02-18 15:58] VITALS: BP 128/70; PULSE 71; TEMP 209.7; TEMP 98.7
--- NOTE | 2025-02-18 17:28 | W.OBNST ---
Date of service: 02/18/25 Time of Service: 17:28 NST Evaluation Reason for NST Reasons for Nonstress Test: OTHER, SEE COMMENT Reason for NST Other: Elevated blood pressure in office Gestational Age Gestational Age in Weeks and Days: 37 Weeks and 0Days Test and Monitor Explained Test/Monitor Explained: Test Explained, Monitor Explained and Patient Verbalized Understanding Vital Signs Blood Pressure: 128/70 Pulse: 71 Temperature: 209.7 F Urine Results Urine Protein: Positive Urine Ketones: Negative Urine Glucose: Negative Urine Blood: Negative NST Information Date on Monitor: 02/18/25 Time on Monitor: 15:53 NST Interventions: PO Hydration and Other Contraction Frequency: 0 NST Evaluation Patient States Movement: Present FHR Baseline: 135 Variability: Moderate 6-25 bpm Accelerations: 15x15 Decelerations: None NST Results: Reactive Note Ultrasound Done: N/A. NST Note Note: Hipolito was seen for visit today. Trace to 1 + edema. BP 130s/80s. Reactive NST. Paul GUSTAFSON met with Hipolito and her partner John to discuss risks of anesthesia related to Chacho Danlos syndrome. Reviewed other medication options with her. BP 128/70. Instructed to RTO in 1 week for appt.. NST Reviewed and Verified by: Alcira Ruiz
[2025-02-18 17:29] VITALS: BP 128/70; PULSE 71; TEMP 209.7; TEMP 98.7
== END 2025-02-18 16:33 ==
LOC: BCD 15:51 → OBS 15:57
PROVIDERS: PCP Student in an Organized Health Care Education/Training Program; Visit Provider Advanced Practice Midwife
DX: O99.891 Other specified diseases and conditions complicating pregnancy (principal); R03.0 Elevated blood-pressure reading, without diagnosis of hypertension; Z3A.37 37 weeks gestation of pregnancy
CPT/HCPCS: 59025

== ENCOUNTER 2025-02-24 10:00 | Outpatient (CLI) | payer MEDICAID, SELFPAY ==
[2025-02-24] MEDS: Normal Saline Flush 10 ML SYR IVP (10:28)
[2025-02-24] MEDS: IRON SUCROSE COMPLEX 200 MG in Normal Saline 100 ML 400 MG IVPB (11:01)
[2025-02-24 11:12] VITALS: BP 135/85; PULSE 82
[2025-02-24 12:40] VITALS: BP 135/85; PULSE 82; TEMP 36.6
--- NOTE | 2025-02-24 14:15 | W.OBNST ---
Date of service: 02/24/25 Time of Service: 14:15 NST Evaluation Reason for NST Reasons for Nonstress Test: OTHER, SEE COMMENT Reason for NST Other: well being Gestational Age Gestational Age in Weeks and Days: 37 Weeks and 6Days Test and Monitor Explained Test/Monitor Explained: Test Explained and Monitor Explained Vital Signs Blood Pressure: 135/85 Pulse: 82 Temperature: 97.9 F Urine Results Urine Protein: Negative Urine Ketones: Negative Urine Glucose: Negative Urine Blood: Negative NST Information Date on Monitor: 02/24/25 Time on Monitor: 10:53 Date off Monitor: 02/24/25 Time off Monitor: 11:25 Total Time on Monitor: 32 NST Interventions: PO Hydration Contraction Frequency: 0 NST Evaluation Patient States Movement: Present FHR Baseline: 130 Variability: Moderate 6-25 bpm Accelerations: 15x15 Decelerations: None NST Results: Reactive Note Ultrasound Done: N/A. NST Note Note: Iron Sucrose 200 mg given IVPB NST Reviewed and Verified by: Elizabeth Fregoso
[2025-02-24 14:16] VITALS: BP 135/85; PULSE 82; TEMP 36.6
== END 2025-02-24 12:30 ==
LOC: BCD 10:00 → OBS 10:04
PROVIDERS: PCP Student in an Organized Health Care Education/Training Program; Visit Provider Advanced Practice Midwife
DX: Z3A.37 37 weeks gestation of pregnancy (principal); O99.119 Other diseases of the blood and blood-forming organs and certain disorders involving the immune mechanism complicating pregnancy, unspecified trimester
CPT/HCPCS: 96365; 59025; J1756

== ENCOUNTER 2025-03-04 01:12 | Outpatient (RCR) | payer MEDICAID, SELFPAY ==
[2025-03-04] MEDS: Normal Saline Flush 10 ML SYR IVP (13:31)
[2025-03-04 13:53] LABS: HGB 11.2 g/dL (11.2-15.7)
== END 2025-03-18 23:59 | disposition home or self-care (01) ==
LOC: INF 01:12
PROVIDERS: PCP Student in an Organized Health Care Education/Training Program; Visit Provider Advanced Practice Midwife
DX: O99.013 Anemia complicating pregnancy, third trimester (principal)
CPT/HCPCS: 36415; 85018

== ENCOUNTER 2025-03-13 04:43 | Inpatient (IN) | payer MEDICAID, SELFPAY ==
[2025-03-13] VITALS (174 sets, daily range): BP systolic 96–181; BP diastolic 52–107; PULSE 0–114; RESP 14–16; TEMP 36.6–37.7; O2SAT 76–100; BMI 42.2
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
[2025-03-13 05:40] LABS: HCT 37.1 % (36.0-46.0); HGB 11.7 g/dL (11.2-15.7); MCH 26.5 pg (27.0-33.0); MCHC 31.5 % (32.0-36.0); MCV 84 fL (80-95); MPV 10.3 fL (8.0-11.0); Platelet Count 300 10^3/uL (130-400); RBC 4.41 10^6/uL (3.93-5.22); RDW 16.1 % (11.7-14.6); RDW-SD 48.1 fL; WBC 12.45 10^3/uL (4.4-10.8)
[2025-03-13] MEDS: hydrOXYzine PAMOATE 25 MG CAP 50 MG PO (06:02)
[2025-03-13] MEDS: MORPHine 4 MG/ML SYR 5 MG IM (06:03)
[2025-03-13] MEDS: MORPHine 4 MG/ML SYR 5 MG IVP (06:05)
--- NOTE | 2025-03-13 11:20 | W.PM.OBNL1 ---
Date of service: 03/13/25 Time of Service: 11:21 Pelvic Exam Comments: O: VS: BP 138/63 upon waking up, which RN repeated 1 minute later and was found to be 141/68 Abdomen: gravid, NT, no regular contractions SVE: 3cm / 100% / -1 station / vertex by palpation of sagittal suture FHTs: baseline 135, moderate variability, + accels, no decels Assessment and Plan Assessment and plan (1) Uterine contractions: Status: Acute (2) 40 weeks gestation of : Status: Acute (3) Elevated systolic blood pressure reading without diagnosis of hypertension: Status: Acute Assessment and plan: A: IUP at 40 weeks 2 days Elevated systolic BP once, not meeting criteria yet for gHTN Reassuring surveillance Therapeutic rest achieved in prodromal labor P: - PC ratio and CMP added on to labs given new elevation in systolic BP. PC ratio returns as 0.27 and CMP is normal. Hipolito remains free from subjective or clinical signs of PEC. - I reviewed her clinical situation with Dr. Art - I reviewed options for management with Hipolito, including inducing labor now which would be an elective IOL, or returning tomorrow morning for a blood pressure check and saving induction of labor until a medical indication arises or at 41 weeks for postdates. We reviewed the process of IOL, the potential for IOL to decrease the incidence of hypertensive disorders of and potentially C/S rate, as well as that IOLs take longer than spontaneous labor and come with more interventions. She took time alone with her partner to process these options, and she would like to be induced this afternoon. - Will initiate Pitocin and AROM once regular contractions are established. - Will also arrange ANSWERING SERVICE TELEPHONE OPERATOR consult to further discuss regional anesthesia options. Objective Abnormal lab results 03/13/25 Range/Units 05:25 WBC 12.45 H (4.4-10.8) 10^3/uL MCH 26.5 L (27.0-33.0) pg MCHC 31.5 L (32.0-36.0) % RDW 16.1 H (11.7-14.6) % Temp Pulse BP Pulse Ox 97.8 F 71 141/68 H 96 03/13/25 09:59 03/13/25 09:59 03/13/25 09:59 03/13/25 09:59 Laboratory Results WBC 12.45 10^3/uL (4.4-10.8) H 03/13/25 05:25 RBC 4.41 10^6/uL (3.93-5.22) 03/13/25 05:25 Hgb 11.7 g/dL (11.2-15.7) 03/13/25 05:25 Hct 37.1 % (36.0-46.0) 03/13/25 05:25 MCV 84 fL (80-95) 03/13/25 05:25 MCH 26.5 pg (27.0-33.0) L 03/13/25 05:25 MCHC 31.5 % (32.0-36.0) L 03/13/25 05:25 RDW 16.1 % (11.7-14.6) H 03/13/25 05:25 Plt Count 300 10^3/uL (130-400) 03/13/25 05:25 MPV 10.3 fL (8.0-11.0) 03/13/25 05:25 ABO/Rh O Positive 03/13/25 05:25 Antibody Screen NEGATIVE 03/13/25 05:25 Subjective Interval history since last seen: Hipolito was able to sleep well with morphine and Vistaril for almost 4 hours. Upon awakening, she is aware of contractions, but she feels them less often and with less discomfort. ROS: Constitional: generally feels well Neuro: denies headache, denies scotoma GI: denies upper abdominal pain OB: good FM, denies VB, some thin discharge consistent with exam gel (no gushes, pad is not wet), contractions as noted above Results Hemoglobin/Hematocrit: Hgb 11.7 g/dL (11.2-15.7) 03/13/25 05:25 Hct 37.1 % (36.0-46.0) 03/13/25 05:25 Abnormal Lab Findings: Abnormal Labs 03/13/25 05:25 WBC 12.45 H MCH 26.5 L MCHC 31.5 L RDW 16.1 H
[2025-03-13 11:28] LABS: ALT 20 U/L (14-59); AST 17 U/L (15-37); Albumin 2.7 g/dL (3.4-5.0); Alkaline Phosphatase 153 U/L (46-116); Anion Gap 12.0 mmol/L (3-11); BUN 6 mg/dL (7-18); Bilirubin, Total 0.2 mg/dL (0.2-1.0); CO2 22.0 mmol/L (21.0-32.0); Calcium 9.2 mg/dL (8.5-10.1); Chloride 103 mmol/L (98-107); Estimated GFR 124.55 (mL/min/1.73m2); Glucose 77 mg/dL (74-106); Potassium 4.1 mmol/L (3.5-5.1); Sodium 137 mmol/L (136-145); Total Protein 6.9 g/dL (6.4-8.2)
[2025-03-13 12:12] LABS: PROTEIN 32.1 mg/dL; Prot/Crea Ur Ratio 0.27
[2025-03-13] MEDS: Lactated Ringers 1,000 ML 125 ML IV (14:32)
[2025-03-13] MEDS: Oxytocin/Normal Saline 30 UNIT/500 ML BAG 2 UNITS IV (14:45)
--- NOTE | 2025-03-13 16:15 | W.PM.OBNL1 ---
Date of service: 03/13/25 Time of Service: 16:15 Assessment and Plan Assessment and plan (1) Elevated systolic blood pressure reading without diagnosis of hypertension: Status: Acute (2) 40 weeks gestation of : Status: Acute (3) Encounter for induction of labor: Status: Acute Assessment and plan: A: IUP at 40 weeks 2 days Category I surveillance Pitocin IOL P: - Continue Pitocin titration to achieve strong contractions q 2-3 minutes - Consider AROM when she is done resting - Discussed anesthesia plan of care with SJ Pace who reviewed her chart and recalls a team meeting with the anesthesia team regarding her care. An epidural may still be an option for Hipolito, though would come with increased risk for a wet tap. Should she desire regional anesthesia, he will be in to drug and alcohol counselor her further. Objective Abnormal lab results 03/13/25 03/13/25 Range/Units 05:25 11:00 WBC 12.45 H (4.4-10.8) 10^3/uL MCH 26.5 L (27.0-33.0) pg MCHC 31.5 L (32.0-36.0) % RDW 16.1 H (11.7-14.6) % Anion Gap 12.0 H (3-11) mmol/L BUN 6 L (7-18) mg/dL Alkaline Phosphatase 153 H (46-116) U/L Albumin 2.7 L (3.4-5.0) g/dL Temp Pulse Resp BP Pulse Ox 98.7 F 73 14 125/77 96 03/13/25 14:28 03/13/25 16:11 03/13/25 14:28 03/13/25 14:28 03/13/25 15:08 Laboratory Results WBC 12.45 10^3/uL (4.4-10.8) H 03/13/25 05:25 RBC 4.41 10^6/uL (3.93-5.22) 03/13/25 05:25 Hgb 11.7 g/dL (11.2-15.7) 03/13/25 05:25 Hct 37.1 % (36.0-46.0) 03/13/25 05:25 MCV 84 fL (80-95) 03/13/25 05:25 MCH 26.5 pg (27.0-33.0) L 03/13/25 05:25 MCHC 31.5 % (32.0-36.0) L 03/13/25 05:25 RDW 16.1 % (11.7-14.6) H 03/13/25 05:25 Plt Count 300 10^3/uL (130-400) 03/13/25 05:25 MPV 10.3 fL (8.0-11.0) 03/13/25 05:25 Sodium 137 mmol/L (136-145) 03/13/25 11:00 Potassium 4.1 mmol/L (3.5-5.1) 03/13/25 11:00 Chloride 103 mmol/L (98-107) 03/13/25 11:00 Carbon Dioxide 22.0 mmol/L (21.0-32.0) 03/13/25 11:00 Anion Gap 12.0 mmol/L (3-11) H 03/13/25 11:00 BUN 6 mg/dL (7-18) L 03/13/25 11:00 Creatinine 0.7 mg/dL (0.55-1.02) 03/13/25 11:00 Est GFR (CKD-EPI 2020) 124.55 (mL/min/1.73m2) 03/13/25 11:00 Glucose 77 mg/dL (74-106) 03/13/25 11:00 Calcium 9.2 mg/dL (8.5-10.1) 03/13/25 11:00 Total Bilirubin 0.2 mg/dL (0.2-1.0) 03/13/25 11:00 AST 17 U/L (15-37) 03/13/25 11:00 ALT 20 U/L (14-59) 03/13/25 11:00 Alkaline Phosphatase 153 U/L (46-116) H 03/13/25 11:00 Total Protein 6.9 g/dL (6.4-8.2) 03/13/25 11:00 Albumin 2.7 g/dL (3.4-5.0) L 03/13/25 11:00 Ur Random Creatinine 118.01 mg/dL 03/13/25 10:40 U Random Total Protein 32.1 mg/dL 03/13/25 10:40 U [place] Prot/Creat Ratio 0.27 03/13/25 10:40 ABO/Rh O Positive 03/13/25 05:25 Antibody Screen NEGATIVE 03/13/25 05:25 Objective Narrative Objective Narrative: A: VSS UCs: q 3 minutes, moderate to palpation FHTs: 130s, moderate variability, + accels, no decels Pitocin: 6 mU / min Monitoring is acheived currently with Daina Blair. Subjective Interval history since last seen: Hipolito was started on Pitocin at 1445. She has been up walking the halls, and now is going to try to rest in bed. She feels contractions intensifying, and she remains in good humor as things progress. She is supported well by her partner John. Results Hemoglobin/Hematocrit: Hgb 11.7 g/dL (11.2-15.7) 03/13/25 05:25 Hct 37.1 % (36.0-46.0) 03/13/25 05:25 Abnormal Lab Findings: Abnormal Labs 03/13/25 03/13/25 05:25 11:00 WBC 12.45 H MCH 26.5 L MCHC 31.5 L RDW 16.1 H Anion Gap 12.0 H BUN 6 L Alkaline Phosphatase 153 H Albumin 2.7 L
--- NOTE | 2025-03-13 17:14 | PGE_ITS ---
Date of service: 03/13/25 Time of Service: 17:14 Informed Consent Informed Consent: Regional Anesthesia Assessment and Plan Assessment and plan (1) Encounter for induction of labor: Status: Acute (2) Elevated systolic blood pressure reading without diagnosis of hypertension: Status: Acute (3) 40 weeks gestation of : Status: Acute Assessment and plan: A: IUP at 40 weeks 2 days Maternal request for regional anesthesia Category I surveillance Pitocin IOL, normal progress into active labor At the patient's request, pain management options in labor were discussed.. After expressing interest in regional anesthesia, she was counseled further on risks related to administration, which include: inadequate analgesia; maternal hypotension; urinary retention; heart rate changes (usually transient); anesthetic risks (very rare); and effects on length of labor. She was also counseled that regional anesthesia is not found to increase the risk of delivery. At this time, she would like to proceed with regional anesthesia. P: - MANUFACTURING MILLWRIGHT paged - Will initiate LR bolus once MANUFACTURING MILLWRIGHT returns call and give ETA Objective Abnormal lab results 03/13/25 03/13/25 Range/Units 05:25 11:00 WBC 12.45 H (4.4-10.8) 10^3/uL MCH 26.5 L (27.0-33.0) pg MCHC 31.5 L (32.0-36.0) % RDW 16.1 H (11.7-14.6) % Anion Gap 12.0 H (3-11) mmol/L BUN 6 L (7-18) mg/dL Alkaline Phosphatase 153 H (46-116) U/L Albumin 2.7 L (3.4-5.0) g/dL Temp Pulse Resp BP Pulse Ox 98.7 F 80 14 125/77 96 03/13/25 14:28 03/13/25 17:11 03/13/25 14:28 03/13/25 14:28 03/13/25 15:08 Laboratory Results WBC 12.45 10^3/uL (4.4-10.8) H 03/13/25 05:25 RBC 4.41 10^6/uL (3.93-5.22) 03/13/25 05:25 Hgb 11.7 g/dL (11.2-15.7) 03/13/25 05:25 Hct 37.1 % (36.0-46.0) 03/13/25 05:25 MCV 84 fL (80-95) 03/13/25 05: MCH 26.5 pg (27.0-33.0) L 03/13/25 05: MCHC 31.5 % (32.0-36.0) L 03/13/25 05:25 RDW 16.1 % (11.7-14.6) H 03/13/25 05:25 Plt Count 300 10^3/uL (130-400) 03/13/25 05:25 MPV 10.3 fL (8.0-11.0) 03/13/25 05:25 Sodium 137 mmol/L (136-145) 03/13/25 11:00 Potassium 4.1 mmol/L (3.5-5.1) 03/13/25 11:00 Chloride 103 mmol/L (98-107) 03/13/25 11:00 Carbon Dioxide 22.0 mmol/L (21.0-32.0) 03/13/25 11:00 Anion Gap 12.0 mmol/L (3-11) H 03/13/25 11:00 BUN 6 mg/dL (7-18) L 03/13/25 11:00 Creatinine 0.7 mg/dL (0.55-1.02) 03/13/25 11:00 Est GFR (CKD-EPI 2020) 124.55 (mL/min/1.73m2) 03/13/25 11:00 Glucose 77 mg/dL (74-106) 03/13/25 11:00 Calcium 9.2 mg/dL (8.5-10.1) 03/13/25 11:00 Total Bilirubin 0.2 mg/dL (0.2-1.0) 03/13/25 11:00 AST 17 U/L (15-37) 03/13/25 11:00 ALT 20 U/L (14-59) 03/13/25 11:00 Alkaline Phosphatase 153 U/L (46-116) H 03/13/25 11:00 Total Protein 6.9 g/dL (6.4-8.2) 03/13/25 11:00 Albumin 2.7 g/dL (3.4-5.0) L 03/13/25 11:00 Ur Random Creatinine 118.01 mg/dL 03/13/25 10:40 U Random Total Protein 32.1 mg/dL 03/13/25 10:40 U [place] Prot/Creat Ratio 0.27 03/13/25 10:40 ABO/Rh O Positive 03/13/25 05:25 Antibody Screen NEGATIVE 03/13/25 05:25 Objective Narrative Objective Narrative: O: VSS UCs: q 2 minutes, moderate to palpation FHTs: 140s, moderate variability, + accels, no decels SVE: 6 cm / 100% / 0 station, small amount of bloody show Pitocin: 8 mU / min, just now decreased to 6 mU / min Subjective Interval history since last seen: Hipolito is starting to work hard with contractions. She tried nitrous oxide, but it was not helpful enough. She is now asking for regional anesthesia. Results Hemoglobin/Hematocrit: Hgb 11.7 g/dL (11.2-15.7) 03/13/25 05:25 Hct 37.1 % (36.0-46.0) 03/13/25 05:25 Abnormal Lab Findings: Abnormal Labs 03/13/25 03/13/25 05:25 11:00 WBC 12.45 H MCH 26.5 L MCHC 31.5 L RDW 16.1 H Anion Gap 12.0 H BUN 6 L Alkaline Phosphatase 153 H Albumin 2.7 L
--- NOTE | 2025-03-13 18:03 | ANES.PREOP_ITS ---
General Info Date of Service Date Performed: 03/13/25 Height: 5 ft 3.5 in Weight: 109.769 kg Body Mass Index (BMI): 42.2 Meds Allergies and Home Medications Allergies Allergy/AdvReac Type Severity Reaction Status Date / Time latex Allergy Mild Skin Rash Verified 03/11/25 15:08 Home Medication ?Medication ?Instructions ?Recorded vits 75-iron 28 mg-folic pkg PO 07/10/24 acid 800 mcg-omega3 440 mg oral pack (One Daily ) aspirin 81 mg tablet,delayed 81 mg PO DAILY 11/19/24 release ferrous sulfate 325 mg (65 mg 325 mg PO DAILY #30 tabs 02/11/25 iron) tablet Current Visit Medications: Current Medications Generic Name Dose Route Start Last Admin Trade Name Umer PRN Reason Stop Dose Admin Fentanyl/Ropivacaine 200 ml 03/13/25 17:45 Fentanyl/Ropivacaine 2 Mcg/Ml And 0.1% 200 Ml Cadd Cassette EP DIRECTED RUDY Oxytocin/Sodium Chloride 30 unit in 500 mls @ 2 mls/hr 03/13/25 13:00 03/13/25 16:15 Pitocin/Normal Saline IV 8 milliunits/min INFUSION RUDY 8 mls/hr Protocol Titration 2 MILLIUNITS/MIN Ringer's Solution 1,000 mls @ 125 mls/hr 03/13/25 13:15 03/13/25 14:32 IV 125 mls/hr INFUSION RUDY Administration IV Miscellaneous Supplies 1 each 03/13/25 13:00 Iv Access IV DIRECTED RUDY Sodium Chloride 0 ml 03/13/25 08:30 Normal Saline Flush 10 Ml Syr IVP BID RUDY Sodium Chloride 0 ml 03/13/25 13:00 Normal Saline 10 Ml Vial IJ DIRECTED PRN PFSH Active Problems Active Problems: Problem Status Onset Code Encounter for induction of labor Acute Z34.90 Elevated systolic blood pressure reading without diagnosis of hypertension Acute R03.0 Uterine contractions Acute O47.9 40 weeks gestation of Acute Z3A.40 Anemia affecting first Acute O99.019 Family history of clubfoot Acute Z82.69 Vesico-ureteric reflux Acute N13.70 Bilateral hip pain 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, 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 Marijuana use Acute F12.90 BMI 36.0-36.9,adult Acute Z68.36 Acute Z34.90 Anxiety Chronic F41.9 Medical History Medical History Positive test PCOS (polycystic ovarian syndrome) Migraine headache with aura 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 Hernia Anemia Surgical History Surgical History S/P ureteral reimplantation S/P MCL repair Tobacco Smoking/Tobacco Use Status: Never Alcohol Alcohol Intake: never Substance Use Substance use: Daily Substance use type: marijuana Prental History History 2 1 Para 0 Hx # Term Pregnancies 0 Multiple births 0 Hx # Pregnancies 0 Ectopic pregnancies 0 AB induced 0 Hx Number of Living Children 0 AB spontaneous 0 Vital Signs and Lab Results Vital Signs Most Recent Vital Signs in EMR: Most Recent Vital Signs Temp Pulse Resp BP Pulse Ox 37.1 C 95 H 14 149/74 H 96 03/13/25 14:28 03/13/25 17:59 03/13/25 14:28 03/13/25 17:20 03/13/25 15:08 Lab Results 03/13/25 05:25 03/13/25 11:00 Blood Type / Crossmatch: 2 Antibody Screen NEGATIVE Today Complete Blood Count: 2 WBC, (4.4-10.8) 12.45 10^3/uL H Today, 05:25 RBC, (3.93-5.22) 4.41 10^6/uL Today, 05:25 Hgb, (11.2-15.7) 11.7 g/dL Today, 05:25 Hct, (36.0-46.0) 37.1 % Today, 05:25 Plt Count, (130-400) 300 10^3/uL Today, 05:25 Complete Metabolic Panel: 2 Sodium, (136-145) 137 mmol/L Today, 11:00 Potassium, (3.5-5.1) 4.1 mmol/L Today, 11:00 Chloride, (98-107) 103 mmol/L Today, 11:00 Carbon Dioxide, (21.0-32.0) 22.0 mmol/L Today, 11:00 BUN, (7-18) 6 mg/dL L Today, 11:00 Creatinine, (0.55-1.02) 0.7 mg/dL Today, 11:00 Est GFR (CKD-EPI 2020), (mL/min/1.73m2) 124.55 Today, 11:00 Calcium, (8.5-10.1) 9.2 mg/dL Today, 11:00 Albumin, (3.4-5.0) 2.7 g/dL L Today, 11:00 Glucose, (74-106) 77 mg/dL Today, 11:00 Liver Function Panel: 2 ALT, (14-59) 20 U/L Today, 11:00 AST, (15-37) 17 U/L Today, 11:00 Anesthesia Assessment and Plan Anesthesia History Personal History: No History of Anesthesia Complications Family History: No Family History of Anesthesia Complications Exercise Tolerance Exercise Tolerance: Metabolic Equivalents>4 Pertinent Negatives Pertinent Negatives: No Symptoms of GERD Cardiac & Pulmonary Exam Cardiac Exam: Normal S1/S2 Heart Sounds Pulmonary Exam: Clear Bilateral Breath Sounds Implantable Cardiac Device Does patient have a Pacemaker or an ICD?: No Airway Exam Known Difficult Airway: No Mallampati Class: 2 Mouth Opening: Normal (> 3cm) Thyromental Distance: Greater than 3 cm Neck Range of Motion: Full ROM Neck Circumference: Normal Teeth Condition: Normal Dentition ASA Classification ASA Score: ASA 3 Emergency Case?: No NPO Status NPO Status: NPO Clears >2 hours, Solids >8 hours Status Status: Confirmed Anesthesia Plan Resuscitation Status: Full Code Anesthesia Technique: Epidural Anesthesia Airway Planned: Natural Airway Pain Management: Surgeon and patient request nerve block Monitors Used: Standard Monitors Preoperative Comments:: As from Consult: Pt given risk/benefit options for labor epidural, labor intrathecal meds given GHSD with potential hEDS. Explained that hEDS have about a 25% higher rate of dural puncture during epidural placement and as well some hEDS patients are resistant to local anesthesia. After the reiteration of the consultation findings and review with the patient of risks and benefits with patient and partner they would like to proceed with the epidural this evening.
[2025-03-13] MEDS: FentaNYL/ROPIvacaine 2 mcg/ml and 0.1% 200 ML CADD Cassette EP (18:27)
--- NOTE | 2025-03-13 18:41 | W.ANESNEU ---
Epidural/Spinal Catheter Date Performed: 03/13/25 Procedure Start: 18:14 Procedure Stop: 18:32 Requesting Provider: Alla Marie Procedure Location: Obstetrics Reason Performed: Labor Epidural Standard Monitors Applied: Blood Pressure, SpO2, ETCO2 and See EMR for corresponding vital signs Patient Position: Sitting Sedation Given (Indicate Dose Given): No Sedation given Patient Mental Status: Awake Sterility: Hand Hygiene, Surgical Cap, Surgical Mask, Sterile Gloves, Sterile Drape/Sheet and Chlorhexidine Procedure Location: L3-L4 Interspace Epidural Needle: Tuohy 17 Guage Needle Length: 3.5 Inch Needle Approach: Midline Epidural Procedure: Skin Prepped, Sterile Drape Placed, 1% Lidocaine to skin and subcutaneous tissue with 25G needle, Tuohy Needle placed, GUSTAVO to Saline Used, Epidural Catheter Placed, Negative Heme, Negative CSF Flow and Tuohy Needle Removed Catheter Placed?: Catheter Placed Test Dose (Indicate Dose Given): 5ml 1.5% Lidocaine with 1:200K Epinephrine Given and Negative Test Dose Loss of Resistance Depth (cm): 10 Catheter depth at skin (cm): 15 Dressing: [place] Dressing Placed, Mastisol Used and Dressing reinforced with Tape Epidural Provider Bolus (Indicate Dose Given): Total bolus dose given in 3-5 ml divided doses and Total Ropivacaine 0.1% with Fentanyl 2mcg/ml Given from pump. (ml) Dose:: 10 ml Additives (Indicate Dose Given ): None Infusion Medication: Medication Infusion Began Medication Infusion: Ropivacaine 0.1% with Fentanyl 2mcg/ml Maintenance Infusion Rate (ml/hour): 10 PCEA Bolus Dose (ml): 5 Block Level: N/A Paresthesia: None Ultrasound: Not Used Number of Attempts (See previous attempts in note section): 1 Procedure Tolerated: No Complications and Patient tolerated well Procedure Outcome: Successful Performed By: Manuel Pace
--- NOTE | 2025-03-13 19:09 | W.PM.OBNL1 ---
Date of service: 03/13/25 Time of Service: 19:09 Assessment and Plan Assessment and plan (1) Encounter for induction of labor: Status: Acute (2) 40 weeks gestation of : Status: Acute Assessment and plan: A: IUP at 40 weeks [address] in [address] Category II surveillance, overall reassuring Pitocin IOL, normal progress through active labor P: - Discussed AROM as a means to faciliate labor. Hipolito declines this intervention. - Recommended resumption of Pitocin infusion since contractions have spaced out, to which she consents. Will resume at 2 mU / min and titrate as needed to achieve stronger contractions q 2-3 minutes - Reassess in 1-2 hours or sooner PRN - Plan straight catheterization prior to onset of pushing - Anticipate vaginal delivery Objective Abnormal lab results 03/13/25 03/13/25 Range/Units 05:25 11:00 WBC 12.45 H (4.4-10.8) 10^3/uL MCH 26.5 L (27.0-33.0) pg MCHC 31.5 L (32.0-36.0) % RDW 16.1 H (11.7-14.6) % Anion Gap 12.0 H (3-11) mmol/L BUN 6 L (7-18) mg/dL Alkaline Phosphatase 153 H (46-116) U/L Albumin 2.7 L (3.4-5.0) g/dL Temp Pulse Resp BP Pulse Ox 98.7 F 77 14 132/78 97 03/13/25 14:28 03/13/25 19:07 03/13/25 14:28 03/13/25 19:00 03/13/25 19:06 Laboratory Results WBC 12.45 10^3/uL (4.4-10.8) H 03/13/25 05:25 RBC 4.41 10^6/uL (3.93-5.22) 03/13/25 05:25 Hgb 11.7 g/dL (11.2-15.7) 03/13/25 05:25 Hct 37.1 % (36.0-46.0) 03/13/25 05:25 MCV 84 fL (80-95) 03/13/25 05:25 MCH 26.5 pg (27.0-33.0) L 03/13/25 05:25 MCHC 31.5 % (32.0-36.0) L 03/13/25 05:25 RDW 16.1 % (11.7-14.6) H 03/13/25 05:25 Plt Count 300 10^3/uL (130-400) 03/13/25 05:25 MPV 10.3 fL (8.0-11.0) 03/13/25 05:25 Sodium 137 mmol/L (136-145) 03/13/25 11:00 Potassium 4.1 mmol/L (3.5-5.1) 03/13/25 11:00 Chloride 103 mmol/L (98-107) 03/13/25 11:00 Carbon Dioxide 22.0 mmol/L (21.0-32.0) 03/13/25 11:00 Anion Gap 12.0 mmol/L (3-11) H 03/13/25 11:00 BUN 6 mg/dL (7-18) L 03/13/25 11:00 Creatinine 0.7 mg/dL (0.55-1.02) 03/13/25 11:00 Est GFR (CKD-EPI 2020) 124.55 (mL/min/1.73m2) 03/13/25 11:00 Glucose 77 mg/dL (74-106) 03/13/25 11:00 Calcium 9.2 mg/dL (8.5-10.1) 03/13/25 11:00 Total Bilirubin 0.2 mg/dL (0.2-1.0) 03/13/25 11:00 AST 17 U/L (15-37) 03/13/25 11:00 ALT 20 U/L (14-59) 03/13/25 11:00 Alkaline Phosphatase 153 U/L (46-116) H 03/13/25 11:00 Total Protein 6.9 g/dL (6.4-8.2) 03/13/25 11:00 Albumin 2.7 g/dL (3.4-5.0) L 03/13/25 11:00 Ur Random Creatinine 118.01 mg/dL 03/13/25 10:40 U Random Total Protein 32.1 mg/dL 03/13/25 10:40 U [place] Prot/Creat Ratio 0.27 03/13/25 10:40 ABO/Rh O Positive 03/13/25 05:25 Antibody Screen NEGATIVE 03/13/25 05:25 Objective Narrative Objective Narrative: O: VS: currently stable, though prior to the epidural when she was in pain there were some mild and moderately elevated blood pressures UCs: now q 3-7 minutes mild to palpation FHTs: 145 baseline, moderate variability, + accels, no recent decels (though had intermittent and early decels without reoccurence) SVE: 9 cm / 100% / 0 station, moderate amount of moulding, no caput Pitocin: off Subjective Interval history since last seen: Hipolito is comfortable now after epidural placement. She is aware of contractions, but not uncomfortable. She is happy with her decision for regional anesthesia. Pitocin was turned down the ultimately discontinued prior to placement of the epidural as the contraction pattern was becoming excessive. Results Hemoglobin/Hematocrit: Hgb 11.7 g/dL (11.2-15.7) 03/13/25 05:25 Hct 37.1 % (36.0-46.0) 03/13/25 05:25 Abnormal Lab Findings: Abnormal Labs 03/13/25 03/13/25 05:25 11:00 WBC 12.45 H MCH 26.5 L MCHC 31.5 L RDW 16.1 H Anion Gap 12.0 H BUN 6 L Alkaline Phosphatase 153 H Albumin 2.7 L
--- NOTE | 2025-03-13 20:52 | W.PM.OBNL1 ---
Date of service: 03/13/25 Time of Service: 20:52 Informed Consent Informed Consent: Regional Anesthesia Assessment and Plan Assessment and plan (1) Encounter for induction of labor: Status: Acute (2) 40 weeks gestation of : Status: Acute Assessment and plan: A: IUP at 40 weeks 2 days Category II surveillance Pitocin IOL - decelerating progress in transition, likely secondary to inadequate forces of labor AROM P: - Maternal position changes to facilitate even dilation of remainder of cervix and better coverage of hot spot on her right hip that isn't covered by the epidural. - Titrate Pitocin as needed to achieve and maintain adequate contractions - Bladder straight cathed - Discussed delivery positions that support the limited mobility in her hips Objective Abnormal lab results 03/13/25 03/13/25 Range/Units 05: 11:00 WBC 12.45 H (4.4-10.8) 10^3/uL MCH 26.5 L (27.0-33.0) pg MCHC 31.5 L (32.0-36.0) % RDW 16.1 H (11.7-14.6) % Anion Gap 12.0 H (3-11) mmol/L BUN 6 L (7-18) mg/dL Alkaline Phosphatase 153 H (46-116) U/L Albumin 2.7 L (3.4-5.0) g/dL Temp Pulse Resp BP Pulse Ox 98.0 F 79 16 132/74 94 03/13/25 19:11 03/13/25 20:51 03/13/25 20:00 03/13/25 20:45 03/13/25 20:48 Laboratory Results WBC 12.45 10^3/uL (4.4-10.8) H 03/13/25 05:25 RBC 4.41 10^6/uL (3.93-5.22) 03/13/25 05:25 Hgb 11.7 g/dL (11.2-15.7) 03/13/25 05:25 Hct 37.1 % (36.0-46.0) 03/13/25 05:25 MCV 84 fL (80-95) 03/13/25 05:25 MCH 26.5 pg (27.0-33.0) L 03/13/25 05:25 MCHC 31.5 % (32.0-36.0) L 03/13/25 05:25 RDW 16.1 % (11.7-14.6) H 03/13/25 05:25 Plt Count 300 10^3/uL (130-400) 03/13/25 05:25 MPV 10.3 fL (8.0-11.0) 03/13/25 05:25 Sodium 137 mmol/L (136-145) 03/13/25 11:00 Potassium 4.1 mmol/L (3.5-5.1) 03/13/25 11:00 Chloride 103 mmol/L (98-107) 03/13/25 11:00 Carbon Dioxide 22.0 mmol/L (21.0-32.0) 03/13/25 11:00 Anion Gap 12.0 mmol/L (3-11) H 03/13/25 11:00 BUN 6 mg/dL (7-18) L 03/13/25 11:00 Creatinine 0.7 mg/dL (0.55-1.02) 03/13/25 11:00 Est GFR (CKD-EPI 2020) 124.55 (mL/min/1.73m2) 03/13/25 11:00 Glucose 77 mg/dL (74-106) 03/13/25 11:00 Calcium 9.2 mg/dL (8.5-10.1) 03/13/25 11:00 Total Bilirubin 0.2 mg/dL (0.2-1.0) 03/13/25 11:00 AST 17 U/L (15-37) 03/13/25 11:00 ALT 20 U/L (14-59) 03/13/25 11:00 Alkaline Phosphatase 153 U/L (46-116) H 03/13/25 11:00 Total Protein 6.9 g/dL (6.4-8.2) 03/13/25 11:00 Albumin 2.7 g/dL (3.4-5.0) L 03/13/25 11:00 Ur Random Creatinine 118.01 mg/dL 03/13/25 10:40 U Random Total Protein 32.1 mg/dL 03/13/25 10:40 U [place] Prot/Creat Ratio 0.27 03/13/25 10:40 ABO/Rh O Positive 07/26/25 05:25 Antibody Screen NEGATIVE 03/13/25 05:25 Objective Narrative Objective Narrative: O: VSS UCs: q 2-5 minutes, mostly moderate to palpation FHTs: 145 baseline, moderate variability, + accels, periodic variable decelerations SVE: cervix only present from 7-12 o'clock, non-edematous, + 1 station, + moulding, no caput, membranes slick against vertex Pitocin: 6 mU / min PROCEDURE: Amniotomy was discussed as a means to faciliate labor, including potential risks of infection with prolonged ROM and cord prolapse if the vertex is not well-applied to the cervix. At this time the potential benefits of amniotomy are thought to outweigh any risk. She consented to amniotomy, which was attempted. Three pops of the amnion were felt, but no fluid returned (no fluid was felt to be between the sac and the vertex and the fetus is sufficently descended to act as a tamponade). Subjective Interval history since last seen: Hipolito remains comfortable with the epidural, though it is providing slightly less coverage than before so she has started to use her [employer]. She has limited mobility in her hips, particularly on the left side which predates . Results Hemoglobin/Hematocrit: Hgb 11.7 g/dL (11.2-15.7) 03/13/25 05:25 Hct 37.1 % (36.0-46.0) 03/13/25 05:25 Abnormal Lab Findings: Abnormal Labs 03/13/25 03/13/25 05:25 11:00 WBC 12.45 H MCH 26.5 L MCHC 31.5 L RDW 16.1 H Anion Gap 12.0 H BUN 6 L Alkaline Phosphatase 153 H Albumin 2.7 L
--- NOTE | 2025-03-13 22:59 | OBVDS_ITS ---
Date of service: 03/13/25 Time of Service: 22:59 OB Labor/ Delivery Information Baby A Delivery Delivery Method: Spontaneaous Presentation: Cephalic Cephalic Position: Vertex Vertex Position: Right Occipital Anterior Cord Description-Baby A: 3 Vessels Amniotic Fluid: Clear Estimated Blood Loss: 250 Delivery Outcome: Liveborn Complications: tachycardia, decelerations Infant Transferred: Remains with Mother Providers Nurse [employer]: Alla Marie Nurse: Lily Fregoso Nurse: Sri Perez Labor/Delivery Information Number of Babies in Womb: 1 Steroids Given: None Reason Steroids Not Administered: N/A Group Beta Strep: N/A Antibiotics Administered: No Rubella Status: Immune Blood Type: O+ Varicella Immunity: Immune Medication in Delivery: Morphine, Vistaril, Pitocin Born En Route: No Shoulder Dystocia: No Stages of Labor Onset of Labor Date: 03/11/25 Onset of Labor Time: 01:18 Complete Dilatation Date: 03/13/25 Complete Dilatation Time: 21:35 Labor - Stage 1 Duration: 68 hours and 17 minutes ROM Baby A: 03/13/25 ROM Baby A: 20:20 ROM Total Time- Baby A: [id number] Delivery Date-Baby A: 03/13/25 Infant Delivery Time-Baby A: 22:34 Labor Stage 2 Duration: 59 minutes Total Length of Labor-Baby A: 69 hours and 16 minutes Baby A Gestational Status: Term (39-41.6 wks) Gestational Age in Weeks/Days: 40 Weeks and 2 Days Note: Now Gestational age: 40 weeks 2 days 1st stage of labor: Induction of labor using Pitocin and AROM. She used morphine and Vistaril in latent labor, then NO briefly, and ultimately received an epidural for pain relief. 2nd stage of labor: She was found to be complete, and she commenced pushing at +1 station. In a left lateral position, she had a NSVB of a viable female . The was born OA, and restituted to ROT. The shoulder and body delivered easily. The was immediately vigorous, and was placed on the maternal abdomen where she continued to cry, and was dried. 3rd stage of labor: Dilute IV Pitocin was given for active management of the 3rd stage of labor. The cord was double clamped by this CNM and transected by the infant's father. Cord blood was collected for routine analysis. After separation bleeding and cord lengthening were noted, the placenta expelled spontaneously, intact, 3-V cord, Bunn mechanism. The fundus was massaged and found to be firm. No clots were expressed despite vigorous massage. EBL 250. The perineum was inspected and to be intact. Mother and stable at the conclusion of this note. Intrapartum complications: tachycardia, decelerations In attendance for delivery: EMILIA Montgomery RN Denise, Supervisor [employer] Karin
[2025-03-14] VITALS (7 sets, daily range): BP systolic 115–148; BP diastolic 63–79; PULSE 73–80; RESP 16; TEMP 36.7–36.8; O2SAT 98–99
[2025-03-14] MEDS: Acetaminophen 325 MG TAB 650 MG PO ×3 (09:47→22:20)
--- NOTE | 2025-03-14 11:25 | OBPPV_ITS ---
Date of service: 03/14/25 Time of Service: 11:25 Assessment and Plan Assessment and plan (1) Single live : Status: Acute (2) Vaginal delivery: Status: Acute (3) Gestational hypertension: Status: Acute Assessment and plan: Plan: - experience debriefed - Discussed diagnosis of gestational hypertension which developed during intrapartum course. Recommended BP surveillance on PP day #3 and once between PP day #7-10. Advised notifying care providers in future pregnancies as aspirin therapy will likely be advised. At this time gHTN appears to be resolving without clinical signs of progression to PEC. - Discussed home visiting nurse supports. Hipolito has already been in touch with the [facility] nurse (though they have not actually met as they had scheduling conflicts). She will reach out to notify her of her now that it will be easier to meet up at home. - support and encouragement given. - Anticipate D/C home tomorrow. Subjective Subjective Interval history: Hipolito is day # 1 after a NSVB. She feels good about her experience and is grateful for being able to catch up on sleep last night. She denies any complaints except some residual pain in her right hip for which she is using ice. She is without difficulty. She has good support from family for her course. Constitutional: denies fever, denies chills, pain manageable with PO meds HEENT: denies scotoma / visual changes Respiratory: denies SOB Cardiovascular: denies chest pain, denies dizziness when moving about the room Breast: denies nipple pain Gastrointestinal: + flatus, mo BM since delivery, tolerating advanced diet Urinary: denies dysuria, voiding spontaneously OB: lochia is lessening, after pains are manageable Neurologic: denies headache Psychiatric: denies anxiety, denies depression, sleeping well Exam Physical Exam Vital signs: Temp Pulse Resp BP Pulse Ox 98.2 F 75 16 128/74 98 03/14/25 09:00 03/14/25 09:00 03/14/25 09:00 03/14/25 09:00 03/14/25 09:00 Narrative: VSS currently, T(max) 99.8 at 2315 03/13/25, last elevated BP 0015 03/14/25 General: well-appearing, NAD Neck: supple, NT Respiratory: CTAB, unlabored CV: NST without murmur Breast: nipples intact GI: soft, NT : fundus firm at umbilicus, Perineum deferred as intact MSK: no homans, no clonus, trace bilateral pedal edema Neuro: patellar DTRs + 2 bilaterally Integument: warm, dry, pink Psychiatric: cooperative, appropriate mood and affect Results Hemoglobin/Hematocrit: Hgb 11.7 g/dL (11.2-15.7) 03/13/25 05:25 Hct 37.1 % (36.0-46.0) 03/13/25 05:25 Abnormal Lab Findings: Abnormal Labs 03/13/25 03/13/25 05:25 11:00 WBC 12.45 H MCH 26.5 L MCHC 31.5 L RDW 16.1 H Anion Gap 12.0 H BUN 6 L Alkaline Phosphatase 153 H Albumin 2.7 L
--- NOTE | 2025-03-14 11:42 | W.ANESPOSTOP ---
Postoperative Evaluation Date, Time and Location Date Performed: 03/14/25 Time Performed: 11:42 Patient Location: Obstetrics Vital Signs Most Recent Imported Vital Signs: Most Recent Vital Signs Temp Pulse Resp BP Pulse Ox 36.8 C 75 16 128/74 98 03/14/25 09:00 03/14/25 09:00 03/14/25 09:00 03/14/25 09:00 03/14/25 09:00 Pain Score Most Recent Pain Score: Most Recent Pain Score Pain Level 2 03/14/25 00:00 Assessment Mental Status: Awake (Alert & Oriented to Patient Baseline) Airway and Respiratory Function: Patent airway with normal (patient baseline) respiratory exam Cardiovascular Function: Hemodynamically Stable Hydration Status: Adequately Hydrated Nausea & Vomiting: No Nausea or Vomiting Pain: Pt. Denies Any Pain Peripheral Nerve Block: Other (Epidural appropriately resolved, denied complaint, denied headache, denied backpain. Per RN catheter removed with tip intact.)
[2025-03-15] MEDS: Acetaminophen 325 MG TAB 650 MG PO (04:29)
[2025-03-15 08:15] VITALS: BP 134/79; PULSE 72; RESP 14; TEMP 37
--- NOTE | 2025-03-15 11:03 | OBPPV_ITS ---
Date of service: 03/15/25 Time of Service: 11:03 Assessment and Plan Assessment and plan (1) Single live : Status: Acute Assessment and plan: Caring for baby independently. Pain is managed well with oral analgesics. Voiding without difficulty. well. A - stable mother and baby , Post day 2, history of anxiety P - Discharge to home. Routine post instructions. Follow up at [facility]. (2) Bilateral hip pain: Status: Acute Assessment and plan: gentle walking encouraged and will consider PT after 2 weeks. Subjective Subjective Interval history: Hipolito feels well. hip pain is managed well with tylenol. Patient comments: Pain well controlled Patient's Mood: good baby status: Doing well feeding status: Breast and formula feeding Narrative: Hipolito has been pumping and hand expressing colostrum for her baby. baby is also latching at the breast Exam Physical Exam Vital signs: Temp Pulse Resp BP Pulse Ox 98.6 F 72 14 134/79 99 03/15/25 08:15 03/15/25 08:15 03/15/25 08:15 03/15/25 08:15 03/14/25 20:46 Vital Signs Reviewed: Yes Constitutional Constitutional: no acute distress HEENT Exam HEENT Exam: Normal Respiratory Exam Respiratory Exam: Normal Cardiovascular Exam Cardiovascular Exam: Normal Fundal Exam Fundus: Below Umbilicus and Firm Exam Comments: intact perineum Extremities Exam Extremity Exam: Normal Back/Spine/Pelvis Exam Back Exam: Normal Psychiatric Exam Psychiatric Exam: Normal Results Hemoglobin/Hematocrit: Hgb 11.7 g/dL (11.2-15.7) 03/13/25 05:25 Hct 37.1 % (36.0-46.0) 03/13/25 05:25 Abnormal Lab Findings: Abnormal Labs 03/13/25 03/13/25 05:25 11:00 WBC 12.45 H MCH 26.5 L MCHC 31.5 L RDW 16.1 H Anion Gap 12.0 H BUN 6 L Alkaline Phosphatase 153 H Albumin 2.7 L
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
== END 2025-03-15 13:20 | disposition home or self-care (01) | DRG 806 ==
PROVIDERS: Admitting Provider Advanced Practice Midwife; PCP Student in an Organized Health Care Education/Training Program; Visit Provider Advanced Practice Midwife
DX: O99.284 Endocrine, nutritional and metabolic diseases complicating childbirth (principal); Q79.62 Hypermobile Ehlers-Danlos syndrome; Z37.0 Single live birth; O99.354 Diseases of the nervous system complicating childbirth; E28.2 Polycystic ovarian syndrome; Z3A.40 40 weeks gestation of pregnancy; M25.551 Pain in right hip; M25.552 Pain in left hip; O75.81 Maternal exhaustion complicating labor and delivery; G43.109 Migraine with aura, not intractable, without status migrainosus; R56.9 Unspecified convulsions; M35.7 Hypermobility syndrome; O99.02 Anemia complicating childbirth; D64.9 Anemia, unspecified; F41.9 Anxiety disorder, unspecified; O99.344 Other mental disorders complicating childbirth; K40.90 Unilateral inguinal hernia, without obstruction or gangrene, not specified as recurrent; O99.324 Drug use complicating childbirth; F12.90 Cannabis use, unspecified, uncomplicated; O76 Abnormality in fetal heart rate and rhythm complicating labor and delivery; O99.62 Diseases of the digestive system complicating childbirth; O13.4 Gestational [pregnancy-induced] hypertension without significant proteinuria, complicating childbirth
CPT/HCPCS: 36415; 80053; 85027; 86850; 86900; 86901; 82565; 84156; J2270